=== PATIENT | male | born 1940 | race Caucasian/White ===

== ENCOUNTER 2020-10-30 08:35 | Emergency (ER) | payer MEDICARE, BC ==
[~2020-10-30] VITALS: Ht 182.9 cm; Wt 80.7 kg
[~2020-10-30 08:35] MED LIST: ASPIRIN EC325 MG PO; ATORVASTATIN CA80 MG PO; LISINOPRIL40 MG PO; VITAMIN D5000 UNIT PO
[2020-10-30] MEDS ORDERED: ELIQUIS2.5 MG PO (08:53)
[2020-10-30] MEDS ORDERED: AMIODARONE HCL200 MG PO (08:53)
[2020-10-30] MEDS ORDERED: ASPIRIN81 MG PO (08:54)
[2020-10-30] MEDS ORDERED: ATORVASTATIN CA80 MG PO (08:54)
[2020-10-30] MEDS ORDERED: DIGOXIN125 MCG PO (08:54)
[2020-10-30] MEDS ORDERED: METOPROLOL SUCC25 MG PO (08:55)
[2020-10-30] MEDS ORDERED: TORSEMIDE10 MG PO (08:55)
[2020-10-30] MEDS ORDERED: FAMOTIDINE20 MG PO (08:55)
[2020-10-30] MEDS ORDERED: ENTRESTO 49 MG1 EACH PO (08:55)
[2020-10-30] MEDS ORDERED: MELATONIN10 M2 PO (08:56)
[2020-10-30] MEDS ORDERED: CINNAMON500 MG PO (08:57)
[2020-10-30] MEDS ORDERED: SPIRONOLACTONE25 MG PO (09:11)
[2020-10-30] MEDS ORDERED: CLEOCIN HCL300 MG PO (14:34)
== END 2020-10-30 15:01 | disposition home or self-care (01) ==
LOC: ED 08:35
PROC: 069Y3ZZ Drainage of Lower Vein, Percutaneous Approach (ICD-10-PCS; principal; 2020-10-30)
DX: T81.49XA Infection following a procedure, other surgical site, initial encounter (principal); I10 Essential (primary) hypertension; Z79.899 Other long term (current) drug therapy; Z79.01 Long term (current) use of anticoagulants; Z79.82 Long term (current) use of aspirin; Z95.1 Presence of aortocoronary bypass graft
CPT/HCPCS: 20610; 80048; 83605; 85025; 93971; 99284-25; J0696; J7040

== ENCOUNTER 2020-11-03 10:53 | Emergency (ER) | payer MEDICARE, BC ==
[~2020-11-03] VITALS: Ht 182.9 cm; Wt 81.6 kg
[~2020-11-03 10:53] MED LIST changes: +AMIODARONE HCL200 MG PO; +ASPIRIN81 MG PO; +CINNAMON500 MG PO; +CLEOCIN HCL300 MG PO; +DIGOXIN125 MCG PO; +ELIQUIS2.5 MG PO; +ENTRESTO 49 MG1 EACH PO; +FAMOTIDINE20 MG PO; +MELATONIN10 M2 PO; +METOPROLOL SUCC25 MG PO; +SPIRONOLACTONE25 MG PO; +TORSEMIDE10 MG PO
--- OUTSIDE RECORDS SUMMARY | 2020-11-03 10:56 | XMS ---
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 Jaquan has no Care Guidelines for this patient. Mao VISIT COUNT (12 MO.) [address] [facility] TOTAL 2 NOTE: Visits indicate total known visits. ED/C VISIT TRACKING (12 MO.) 11/03/2020 10:[address] 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 INPATIENT VISIT TRACKING (12 MO.) 07/29/2020 05:52 [place] [facility] TYPE: Cardiology DIAGNOSES: - Heart failure, unspecified - Mixed hyperlipidemia - Acute on chronic combined systolic (congestive) and diastolic (congestive) heart failure - Unspecified atrial fibrillation - Ischemic cardiomyopathy - Alcohol abuse, in remission - Cardiogenic shock - Atherosclerotic heart disease of [place] coronary artery without angina pectoris - Essential (primary) hypertension - Atherosclerotic heart disease of [place] coronary artery with other forms of angina pectoris - Presence of aortocoronary bypass graft [email or web address]
[2020-11-03] MEDS ORDERED: CEPHALEXIN500 M1 PO (14:22)
== END 2020-11-03 14:57 | disposition home or self-care (01) ==
LOC: ED 10:53
PROC: 0H9KXZZ Drainage of Right Lower Leg Skin, External Approach (ICD-10-PCS; principal; 2020-11-03)
DX: L02.415 Cutaneous abscess of right lower limb (principal); L03.115 Cellulitis of right lower limb; I10 Essential (primary) hypertension; E78.00 Pure hypercholesterolemia, unspecified; Z79.899 Other long term (current) drug therapy; Z79.82 Long term (current) use of aspirin
CPT/HCPCS: 10061; 80053; 85025; 87493; 93971; 99284-25

== ENCOUNTER 2021-01-14 11:22 | Emergency (ER) | payer MEDICARE, BC ==
[~2021-01-14] VITALS: Ht 182.9 cm; Wt 80.7 kg
[~2021-01-14 11:22] MED LIST changes: +CEPHALEXIN500 M1 PO
--- OUTSIDE RECORDS SUMMARY | 2021-01-14 11:28 | XMS ---
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 Care History Medical/Surgical 11/04/2020 [facility] - Patient is currently established with [facility]. If patient is seen in the ED during business hours. Please contact CHWs at [facility]. Care Recommendation: If this patient has had 5 or more Emergency Department visits in the last 12 months.\T\nbsp; Patient will require education on the scope and purpose of the ED as an acute care provider not a Primary Care Provider and should not be utilized for chronic conditions.\T\nbsp; These are guidelines and the provider should exercise clinical judgment when providing care. E.D. VISIT COUNT (12 MO.) 3 [facility] TOTAL 3 NOTE: Visits indicate total known visits. ED/UCC VISIT TRACKING (12 MO.) 01/14/2021 11:[address] [facility] [place] TYPE: Emergency COMPLAINT: - DIZZINESS, UNBALANCED 11/03/2020 10:[address] 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 [place] [facility] [place] TYPE: Cardiology DIAGNOSES: - Heart failure, unspecified - Mixed hyperlipidemia - Acute on chronic combined systolic (congestive) and diastolic (congestive) heart failure - Unspecified atrial fibrillation - Ischemic cardiomyopathy - Alcohol abuse, in remission - Cardiogenic shock - Atherosclerotic heart disease of [place] coronary artery without angina pectoris - Essential (primary) hypertension - Atherosclerotic heart disease of [place] coronary artery with other forms of angina pectoris - Presence of aortocoronary bypass graft [email or web address]
[2021-01-14] MEDS ORDERED: ENTRESTO 49 MG1 EACH PO (11:38)
--- NOTE | 2021-01-16 13:13 | EKG ---
[facility] [address] [facility] [place] [address] Signed Sinus rhythm with premature atrial complexes with aberrant conduction Left axis deviation Right bundle branch block Anteroseptal infarct , age undetermined T wave abnormality, consider lateral ischemia Abnormal ECG No previous ECGs available Confirmed by MISHA LAROSE MD ([id number]) on 01/16/2021 1:13:26 PM Electronically Signed By: MISHA LAROSE MD 01/16/21 1313 PATIENT NAME: YEMI YOU Electrocardiogram DATE OF : 38 PHYSICIAN: MISHA LAROSE MD REPORT #: [id number] REPORT IS CONFIDENTIAL AND NOT TO BE RELEASED WITHOUT AUTHORIZATION
--- NOTE | 2021-01-16 13:13 | EKG ---
[facility] [address] [facility] [place] [address] Signed Normal sinus rhythm Left axis deviation Right bundle branch block Anteroseptal infarct (cited on or before 14-JAN-2021) Abnormal ECG When compared with ECG of 14-JAN-2021 11:32, (Unconfirmed) aberrant conduction is no longer present Serial changes of Anteroseptal infarct present Confirmed by MISHA LAROSE MD ([id number]) on 01/16/2021 1:13:36 PM Electronically Signed By: MISHA LAROSE MD 01/16/21 1313 PATIENT NAME: YEMI YOU Electrocardiogram DATE OF : 38 PHYSICIAN: MISHA LAROSE MD REPORT #: [id number] REPORT IS CONFIDENTIAL AND NOT TO BE RELEASED WITHOUT AUTHORIZATION
== END 2021-01-14 14:29 | disposition home or self-care (01) ==
LOC: ED 11:22
DX: R42 Dizziness and giddiness (principal); I10 Essential (primary) hypertension; E78.00 Pure hypercholesterolemia, unspecified; Z79.899 Other long term (current) drug therapy; Z79.82 Long term (current) use of aspirin
CPT/HCPCS: 70450; 71045; 80053; 81001; 83735; 84439; 84443; 84484; 85025; 93005; 93010; 99284-25

== ENCOUNTER 2021-08-02 10:55 | Emergency (ER) | payer OTHER, MEDICARE, BC ==
[~2021-08-02] VITALS: Ht 182.9 cm; Wt 80.7 kg
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
== END 2021-08-02 12:52 | disposition home or self-care (01) ==
LOC: ED 10:55
DX: S43.402A Unspecified sprain of left shoulder joint, initial encounter (principal); V43.52XA Car driver injured in collision with other type car in traffic accident, initial encounter; I10 Essential (primary) hypertension; E78.00 Pure hypercholesterolemia, unspecified; Z79.899 Other long term (current) drug therapy; Z79.82 Long term (current) use of aspirin
CPT/HCPCS: 71101; 73030; 99284-25